=== PATIENT | male | born 1990 | race Caucasian/White ===

== ENCOUNTER 2017-11-21 18:41 | Emergency (ER) | payer OTHER ==
[~2017-11-21] VITALS: Ht 182.9 cm; Wt 56.7 kg
[~2017-11-21 18:41] MED LIST: Amoxicillin500 MG PO; CODACE30 PO; HYDACE5 PO; ONDA8ODT MM; OXYACE5T PO; RXCODACET PO; RXONDA4ODT MM
[2017-11-21] MEDS ORDERED: TRAM50 PO (20:05)
== END 2017-11-21 20:14 | disposition home or self-care (01) ==
LOC: ER 18:41
DX: M89.8X1 Other specified disorders of bone, shoulder (principal); Z87.891 Personal history of nicotine dependence
CPT/HCPCS: 73010; 99283